=== PATIENT | female | born 1950 | race Hispanic/Latino ===

== ENCOUNTER 2017-05-21 18:15 | Emergency (ER) | payer OTHER, MEDICAID ==
[2017-05-21 19:35] VITALS: RESP 18; BMI 36.3
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
[2017-05-21 20:36] VITALS: BP 157/88; PULSE 88; TEMP 97.6; O2SAT 96
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
== END 2017-05-21 20:48 | disposition home or self-care (01) ==
LOC: C.ER 18:15
DX: S39.012A Strain of muscle, fascia and tendon of lower back, initial encounter (principal); S50.02XA Contusion of left elbow, initial encounter; V03.10XA Pedestrian on foot injured in collision with car, pick-up truck or van in traffic accident, initial encounter; Y92.410 Unspecified street and highway as the place of occurrence of the external cause

== ENCOUNTER 2018-10-22 14:59 | Emergency (ER) | payer MEDICARE, BC ==
[2018-10-22 14:59] VITALS: BMI 36.3
[2018-10-22 15:18] VITALS: RESP 18; O2SAT 97
[2018-10-22 17:58] VITALS: BP 144/79; PULSE 77; TEMP 97.8
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
== END 2018-10-22 17:53 | disposition home or self-care (01) ==
LOC: C.ER 14:59
DX: S20.211A Contusion of right front wall of thorax, initial encounter (principal); W01.0XXA Fall on same level from slipping, tripping and stumbling without subsequent striking against object, initial encounter